=== PATIENT | female | born 1975 | race Caucasian/White ===

== ENCOUNTER 2016-12-22 23:54 | Inpatient (IN) | payer MEDICAID, MEDICARE ==
[~2016-12-22] VITALS: Ht 165.1 cm; Wt 61.0 kg
[~2016-12-22 23:54] MED LIST: BENZ1TAB10 PO; CARB200T PO; FLUP10 PO; PALI156D IM; RISP3TAB44 PO
[2016-12-23] MEDS ORDERED: HALOPERIDOL 5 MG TABLET PO ONE (01:00)
[2016-12-23] MEDS ORDERED: LORazepam 2 MG TABLET PO ONE (01:00)
[2016-12-23] MEDS ORDERED: DiphenhydrAMINE HCL 25 MG CAPSULE PO ONE (01:00)
[2016-12-23 01:11] LABS: BASOPHILS # (AUTO) 0.17 K/uL (0.00-0.20); EOSINOPHILS # (AUTO) 0.14 K/uL (0.00-0.70); HEMATOCRIT 38.6 % (36-46); HEMOGLOBIN 12.8 g/dL (12.0-16.0); LYMPHOCYTES # (AUTO) 2.9 K/uL (1.0-4.8); LYMPHOCYTES % (AUTO) 33.7 % (22.0-44.0); MEAN CORPUSCULAR HEMOGLOBIN 29.8 pg (26.0-34.0); MEAN CORPUSCULAR HGB CONC 33.3 G/dL (31.0-37.0); MEAN CORPUSCULAR VOLUME 89 fL (80-100); MONOCYTES # (AUTO) 0.7 K/uL (0.1-1.0); MONOCYTES % (AUTO) 8.5 % (2.0-9.0); NEUTROPHILS # (AUTO) 4.7 K/uL (1.8-7.7); NEUTROPHILS % (AUTO) 54.3 % (40.0-70.0); PLATELET COUNT (AUTO) 253 K/uL (150-450); RED BLOOD CELL COUNT(AUTO) 4.32 MIL/uL (4.00-5.20); WHITE BLOOD COUNT (AUTO) 8.7 K/uL (4.5-11.0)
[2016-12-23 01:22] LABS: ANION GAP 3 mmol/L (8-16); CALCIUM, TOTAL 8.9 mg/dL (8.8-10.5); CARBON DIOXIDE 33 mmol/L (22-29); CHLORIDE 104 mmol/L (98-107); CREATININE 0.88 mg/dL (0.60-1.30); GLOMERULAR FILTR. RATE CALC > 60 mL/min (>60); POTASSIUM 3.4 mmol/L (3.5-5.1); SODIUM SERUM 140 mmol/L (136-145); UREA NITROGEN, BLOOD 14 mg/dL (7-18)
[2016-12-23 01:28] LABS: ALANINE AMINOTRANSFERASE 23 U/L (12-78); ALBUMIN 3.1 g/dL (3.4-5.0); ASPARTATE AMINOTRANSFERASE 18 U/L (15-37); BILIRUBIN,TOTAL 0.1 mg/dL (0.1-1.0); TOTAL PROTEIN, SERUM 7.1 g/dL (6.4-8.2)
[2016-12-23 01:30] VITALS: BP 132/71
[2016-12-23] MEDS ORDERED: ZOLPIDEM TARTRATE 10 MG TABLET PO PRN (01:30)
[2016-12-23] MEDS ORDERED: HALOPERIDOL 5 MG TABLET PO PRN (01:30)
[2016-12-23] MEDS ORDERED: POTASSIUM CHLORIDE 10% 40 MEQ/30 ML LIQUID UDCUP PO ONE (02:00)
[2016-12-23 07:02] LABS: APPEARANCE,URINE TURBID (CLEAR); GLUCOSE, URINE (UA) NEGATIVE (NEGATIVE); KETONES,URINE NEGATIVE (NEGATIVE); LEUKOCYTE ESTERASE ,URINE NEGATIVE (NEGATIVE); OCCULT BLOOD,URINE NEGATIVE (NEGATIVE); PH,URINE 5.5 (5.0-8.0); PROTEIN,URINE NEGATIVE (NEGATIVE)
[2016-12-23 07:04] LABS: ADD UA MICROSCOPIC NO
[2016-12-23] MEDS: CarBAMazepine 200 MG TABLET PO SCH ×2 (09:00→17:00)
[2016-12-23] MEDS ORDERED: BENZTROPINE MESYLATE 1 MG TABLET PO SCH (09:00)
[2016-12-23] MEDS: RisperiDONE 1 MG TABLET PO SCH ×2 (09:00→17:00)
[2016-12-23] MEDS ORDERED: PALIPERIDONE PALMITATE 156 MG/ML SYRINGE IM SCH (09:00)
[2016-12-23] MEDS ORDERED: IBUPROFEN 400 MG TABLET PO PRN (13:30)
[2016-12-23] MEDS ORDERED: ACETAMINOPHEN 325 MG TABLET PO PRN (13:30)
[2016-12-23] MEDS: BENZTROPINE MESYLATE 1 MG TABLET PO SCH (17:00)
[2016-12-23] MEDS ORDERED: FluPHENAZine HCL 10 MG TABLET PO SCH (21:00)
[2016-12-23] MEDS ORDERED: ALBUTEROL SULFATE HFA 90 MCG/PUFF 8 GM INHALER IH PRN (22:15)
[2016-12-24] MEDS: LevETIRAcetam 250 MG TABLET PO SCH ×2 (09:00→17:00)
[2016-12-24] MEDS: CarBAMazepine 200 MG TABLET PO SCH ×2 (09:00→17:00)
[2016-12-24] MEDS: RisperiDONE 1 MG TABLET PO SCH ×2 (09:00→17:00)
[2016-12-24] MEDS: BENZTROPINE MESYLATE 1 MG TABLET PO SCH ×2 (09:00→17:00)
[2016-12-25] MEDS: LevETIRAcetam 250 MG TABLET PO SCH ×2 (09:00→17:11)
[2016-12-25] MEDS: CarBAMazepine 200 MG TABLET PO SCH ×2 (09:00→17:11)
[2016-12-25] MEDS: BENZTROPINE MESYLATE 1 MG TABLET PO SCH ×2 (09:00→17:11)
[2016-12-25] MEDS: RisperiDONE 1 MG TABLET PO SCH ×2 (09:00→17:00)
[2016-12-25 16:30] VITALS: BP 118/56
[2016-12-25] MEDS ORDERED: BENZOCAINE/MENTHOL LOZENGE [8 LOZENGES/PACKET] MM PRN (19:45)
[2016-12-25] MEDS ORDERED: PETROLATUM,WHITE 71 GM JELLY TP PRN (19:45)
[2016-12-25] MEDS ORDERED: BACITRACIN 28.4 GM OINTMENT TP PRN (19:45)
[2016-12-25] MEDS ORDERED: LOPERAMIDE HCL 2 MG CAPSULE PO PRN (19:45)
[2016-12-25] MEDS ORDERED: MAGNESIUM HYDROXIDE SUSPENSION 30 ML UDCUP PO PRN (19:45)
[2016-12-25] MEDS ORDERED: ONDANSETRON HCL 4 MG TABLET PO PRN (19:45)
[2016-12-25] MEDS ORDERED: MAG HYDROX/AL HYDROX/SIMETH ES 30 ML SUSPENSION UDCUP PO PRN (19:45)
[2016-12-25] MEDS ORDERED: IBUPROFEN 600 MG TABLET PO PRN (19:45)
[2016-12-25] MEDS ORDERED: CloNIDine HCL 0.1 MG TABLET PO PRN (19:45)
[2016-12-26] MEDS: RisperiDONE 1 MG TABLET PO SCH ×2 (09:00→18:15)
[2016-12-26] MEDS: BENZTROPINE MESYLATE 1 MG TABLET PO SCH ×2 (09:00→18:15)
[2016-12-26] MEDS: LevETIRAcetam 250 MG TABLET PO SCH ×2 (09:00→17:00)
[2016-12-26] MEDS: OMEPRAZOLE 20 MG CAPSULE PO SCH (09:00)
[2016-12-26] MEDS: CarBAMazepine 200 MG TABLET PO SCH ×2 (09:00→17:00)
[2016-12-26] MEDS: DOCUSATE SODIUM 100 MG CAPSULE PO SCH (09:00)
[2016-12-26] MEDS ORDERED: DiphenhydrAMINE HCL 50 MG/ML VIAL IM ONE (09:30)
[2016-12-26] MEDS ORDERED: HALOPERIDOL LACTATE 5 MG/ML VIAL IM ONE (09:30)
[2016-12-26] MEDS ORDERED: LORazepam 2 MG/ML VIAL IM ONE (09:30)
[2016-12-27] MEDS: BENZTROPINE MESYLATE 1 MG TABLET PO SCH ×2 (09:00→17:00)
[2016-12-27] MEDS: LevETIRAcetam 250 MG TABLET PO SCH ×2 (09:00→17:00)
[2016-12-27] MEDS: RisperiDONE 1 MG TABLET PO SCH ×2 (09:00→18:15)
[2016-12-27] MEDS: CarBAMazepine 200 MG TABLET PO SCH ×2 (09:00→17:00)
[2016-12-27] MEDS: OMEPRAZOLE 20 MG CAPSULE PO SCH (09:16)
[2016-12-27] MEDS: DOCUSATE SODIUM 100 MG CAPSULE PO SCH (09:17)
[2016-12-27] MEDS ORDERED: DiphenhydrAMINE HCL 50 MG/ML VIAL IM ONE (10:45)
[2016-12-27] MEDS ORDERED: LORazepam 2 MG/ML VIAL IM ONE (10:45)
[2016-12-27] MEDS ORDERED: HALOPERIDOL LACTATE 5 MG/ML VIAL IM ONE (10:45)
[2016-12-27] MEDS ORDERED: HALOPERIDOL LACTATE 5 MG/ML VIAL ONE (10:49)
[2016-12-27] MEDS ORDERED: DiphenhydrAMINE HCL 50 MG/ML VIAL ONE (10:49)
[2016-12-27] MEDS ORDERED: LORazepam 2 MG/ML VIAL ONE (10:49)
[2016-12-28] MEDS: BENZTROPINE MESYLATE 1 MG TABLET PO SCH ×3 (08:29→17:00)
[2016-12-28] MEDS: LevETIRAcetam 250 MG TABLET PO SCH ×3 (08:29→17:00)
[2016-12-28] MEDS: CarBAMazepine 200 MG TABLET PO SCH ×2 (08:29→17:00)
[2016-12-28] MEDS: OMEPRAZOLE 20 MG CAPSULE PO SCH (08:32)
[2016-12-28] MEDS: DOCUSATE SODIUM 100 MG CAPSULE PO SCH (08:32)
[2016-12-28] MEDS: RisperiDONE 1 MG TABLET PO SCH ×2 (08:32→17:00)
[2016-12-28] MEDS: LORazepam 2 MG TABLET PO PRN (13:13)
[2016-12-28] MEDS ORDERED: HALOPERIDOL LACTATE 5 MG/ML VIAL IM ONE (13:15)
[2016-12-28] MEDS ORDERED: DiphenhydrAMINE HCL 50 MG/ML VIAL IM ONE (13:15)
[2016-12-28] MEDS ORDERED: LORazepam 2 MG/ML VIAL IM ONE (13:15)
[2016-12-29] MEDS: LevETIRAcetam 250 MG TABLET PO SCH ×2 (09:00→16:12)
[2016-12-29] MEDS: RisperiDONE 1 MG TABLET PO SCH ×2 (09:12→16:12)
[2016-12-29] MEDS: BENZTROPINE MESYLATE 1 MG TABLET PO SCH ×2 (09:12→16:12)
[2016-12-29] MEDS: CarBAMazepine 200 MG TABLET PO SCH ×2 (09:12→16:12)
[2016-12-29] MEDS: DOCUSATE SODIUM 100 MG CAPSULE PO SCH (09:12)
[2016-12-29] MEDS: OMEPRAZOLE 20 MG CAPSULE PO SCH (09:12)
[2016-12-29] MEDS: LORazepam 2 MG TABLET PO PRN ×2 (10:29→16:12)
[2016-12-29 16:37] VITALS: BP 118/71
[2016-12-30] MEDS: DOCUSATE SODIUM 100 MG CAPSULE PO SCH (08:12)
[2016-12-30] MEDS: OMEPRAZOLE 20 MG CAPSULE PO SCH (08:12)
[2016-12-30] MEDS: RisperiDONE 1 MG TABLET PO SCH ×2 (08:12→17:00)
[2016-12-30] MEDS: BENZTROPINE MESYLATE 1 MG TABLET PO SCH ×2 (08:12→16:59)
[2016-12-30] MEDS: LevETIRAcetam 250 MG TABLET PO SCH ×2 (08:21→17:00)
[2016-12-30] MEDS: CarBAMazepine 200 MG TABLET PO SCH ×2 (08:21→17:00)
[2016-12-30 09:55] VITALS: BP 96/68
[2016-12-31] MEDS: RisperiDONE 1 MG TABLET PO SCH ×2 (08:28→16:48)
[2016-12-31] MEDS: DOCUSATE SODIUM 100 MG CAPSULE PO SCH (08:28)
[2016-12-31] MEDS: BENZTROPINE MESYLATE 1 MG TABLET PO SCH ×2 (08:28→16:47)
[2016-12-31] MEDS: CarBAMazepine 200 MG TABLET PO SCH ×2 (08:28→16:47)
[2016-12-31] MEDS: OMEPRAZOLE 20 MG CAPSULE PO SCH (08:29)
[2016-12-31] MEDS: LevETIRAcetam 250 MG TABLET PO SCH ×3 (08:34→17:00)
[2016-12-31 16:30] VITALS: BP 110/68
[2017-01-01] MEDS: BENZTROPINE MESYLATE 1 MG TABLET PO SCH ×2 (08:50→16:25)
[2017-01-01] MEDS: RisperiDONE 1 MG TABLET PO SCH ×2 (08:50→16:25)
[2017-01-01] MEDS: DOCUSATE SODIUM 100 MG CAPSULE PO SCH (08:50)
[2017-01-01] MEDS: OMEPRAZOLE 20 MG CAPSULE PO SCH (08:50)
[2017-01-01] MEDS: LevETIRAcetam 250 MG TABLET PO SCH ×2 (08:53→16:26)
[2017-01-01] MEDS: CarBAMazepine 200 MG TABLET PO SCH ×2 (08:53→16:25)
[2017-01-01 16:30] VITALS: BP 111/63
[2017-01-02 08:20] VITALS: BP 125/105
[2017-01-02] MEDS: RisperiDONE 1 MG TABLET PO SCH ×2 (09:00→16:50)
[2017-01-02] MEDS: DOCUSATE SODIUM 100 MG CAPSULE PO SCH (09:00)
[2017-01-02] MEDS: BENZTROPINE MESYLATE 1 MG TABLET PO SCH ×2 (09:00→16:51)
[2017-01-02] MEDS: CarBAMazepine 200 MG TABLET PO SCH ×2 (09:00→16:51)
[2017-01-02] MEDS: LevETIRAcetam 250 MG TABLET PO SCH ×2 (09:01→16:51)
[2017-01-02] MEDS: OMEPRAZOLE 20 MG CAPSULE PO SCH (09:01)
[2017-01-02] MEDS: LORazepam 2 MG TABLET PO PRN (16:50)
[2017-01-02 19:38] VITALS: BP 110/64
[2017-01-03] MEDS: LevETIRAcetam 250 MG TABLET PO SCH ×2 (09:00→16:38)
[2017-01-03] MEDS: DOCUSATE SODIUM 100 MG CAPSULE PO SCH (09:00)
[2017-01-03] MEDS: CarBAMazepine 200 MG TABLET PO SCH ×2 (09:00→16:37)
[2017-01-03] MEDS: RisperiDONE 1 MG TABLET PO SCH ×2 (09:00→16:38)
[2017-01-03] MEDS: OMEPRAZOLE 20 MG CAPSULE PO SCH (09:00)
[2017-01-03] MEDS: BENZTROPINE MESYLATE 1 MG TABLET PO SCH ×2 (09:00→16:38)
[2017-01-03] MEDS: LORazepam 2 MG TABLET PO PRN ×3 (14:38→18:41)
[2017-01-03 21:36] VITALS: BP 148/79
[2017-01-04] MEDS: CarBAMazepine 200 MG TABLET PO SCH ×2 (08:01→16:23)
[2017-01-04] MEDS: OMEPRAZOLE 20 MG CAPSULE PO SCH (08:01)
[2017-01-04] MEDS: LevETIRAcetam 250 MG TABLET PO SCH ×2 (08:01→16:23)
[2017-01-04] MEDS: DOCUSATE SODIUM 100 MG CAPSULE PO SCH (08:01)
[2017-01-04] MEDS: RisperiDONE 1 MG TABLET PO SCH ×2 (08:01→16:23)
[2017-01-04] MEDS: BENZTROPINE MESYLATE 1 MG TABLET PO SCH ×2 (08:01→16:23)
[2017-01-04 08:18] VITALS: BP 106/71
[2017-01-04] MEDS: LORazepam 2 MG TABLET PO PRN ×2 (11:04→15:35)
[2017-01-04 16:22] VITALS: BP 126/77
[2017-01-05] MEDS: RisperiDONE 1 MG TABLET PO SCH ×2 (07:25→16:38)
[2017-01-05] MEDS: LevETIRAcetam 250 MG TABLET PO SCH ×2 (07:25→16:39)
[2017-01-05] MEDS: OMEPRAZOLE 20 MG CAPSULE PO SCH (07:25)
[2017-01-05] MEDS: CarBAMazepine 200 MG TABLET PO SCH ×2 (07:25→16:39)
[2017-01-05] MEDS: BENZTROPINE MESYLATE 1 MG TABLET PO SCH ×2 (07:25→16:39)
[2017-01-05] MEDS: DOCUSATE SODIUM 100 MG CAPSULE PO SCH (07:25)
[2017-01-05] MEDS: LORazepam 2 MG TABLET PO PRN ×2 (07:29→12:00)
[2017-01-05 08:03] VITALS: BP 97/62
[2017-01-05 16:08] VITALS: BP 104/70
[2017-01-06 06:51] VITALS: BP 107/68
[2017-01-06] MEDS ORDERED: CARB200T6 PO (07:51)
[2017-01-06] MEDS ORDERED: OMEP20 PO (07:51)
[2017-01-06] MEDS ORDERED: BENZ1TAB10 PO (07:51)
[2017-01-06] MEDS ORDERED: LEVE250T55 PO (07:51)
[2017-01-06] MEDS ORDERED: RISP3 PO (07:51)
[2017-01-06] MEDS ORDERED: DSS100 PO (07:51)
[2017-01-06] MEDS: RisperiDONE 1 MG TABLET PO SCH (08:12)
[2017-01-06] MEDS: LevETIRAcetam 250 MG TABLET PO SCH (08:12)
[2017-01-06] MEDS: DOCUSATE SODIUM 100 MG CAPSULE PO SCH (08:12)
[2017-01-06] MEDS: OMEPRAZOLE 20 MG CAPSULE PO SCH (08:12)
[2017-01-06] MEDS: CarBAMazepine 200 MG TABLET PO SCH (08:12)
[2017-01-06] MEDS: BENZTROPINE MESYLATE 1 MG TABLET PO SCH (08:12)
[2017-01-06 08:30] VITALS: BP 104/62
== END 2017-01-06 12:06 | disposition home or self-care (01) | DRG 885 ==
LOC: EMS 23:56 → 3EX 12-23 02:00
DX: F20.0 Paranoid schizophrenia (principal); R45.851 Suicidal ideations; M19.90 Unspecified osteoarthritis, unspecified site; J45.909 Unspecified asthma, uncomplicated; F31.9 Bipolar disorder, unspecified; K21.9 Gastro-esophageal reflux disease without esophagitis; I10 Essential (primary) hypertension; G40.909 Epilepsy, unspecified, not intractable, without status epilepticus; E87.6 Hypokalemia; K59.09 Other constipation; J44.9 Chronic obstructive pulmonary disease, unspecified; F15.90 Other stimulant use, unspecified, uncomplicated; F12.90 Cannabis use, unspecified, uncomplicated; F17.210 Nicotine dependence, cigarettes, uncomplicated; F11.90 Opioid use, unspecified, uncomplicated; Z59.0 Homelessness; Z91.14 Patient's other noncompliance with medication regimen; Z91.018 Allergy to other foods; Z90.49 Acquired absence of other specified parts of digestive tract; Z98.51 Tubal ligation status; Z90.5 Acquired absence of kidney; Z98.890 Other specified postprocedural states; Z71.51 Drug abuse counseling and surveillance of drug abuser; Z71.6 Tobacco abuse counseling; Z91.5 Personal history of self-harm
CPT/HCPCS: 99285; G0480; J1200; J1630; J2060

== ENCOUNTER 2017-01-14 23:25 | Inpatient (IN) | payer MEDICARE ==
[~2017-01-14] VITALS: Ht 162.6 cm; Wt 63.4 kg
[~2017-01-14 23:25] MED LIST changes: -CARB200T PO; +CARB200T6 PO; +DSS100 PO; -FLUP10 PO; +LEVE250T55 PO; +OMEP20 PO; -PALI156D IM; +RISP3 PO; -RISP3TAB44 PO
[2017-01-15] LABS: BASOPHILS # (AUTO) 0.07 K/uL (0.00-0.20); BASOPHILS % (AUTO) 0.8 % (0.0-2.0); EOSINOPHILS # (AUTO) 0.21 K/uL (0.00-0.70); EOSINOPHILS % (AUTO) 2.19 % (1.0-6.0); HEMATOCRIT 35.5 % (36-46); HEMOGLOBIN 11.8 g/dL (12.0-16.0); LYMPHOCYTES # (AUTO) 2.9 K/uL (1.0-4.8); LYMPHOCYTES % (AUTO) 29.8 % (22.0-44.0); MEAN CORPUSCULAR HEMOGLOBIN 29.6 pg (26.0-34.0); MEAN CORPUSCULAR HGB CONC 33.2 G/dL (31.0-37.0); MEAN CORPUSCULAR VOLUME 89 fL (80-100); MONOCYTES # (AUTO) 0.6 K/uL (0.1-1.0); MONOCYTES % (AUTO) 5.7 % (2.0-9.0); NEUTROPHILS % (AUTO) 61.6 % (40.0-70.0); PLATELET COUNT (AUTO) 240 K/uL (150-450); RED BLOOD CELL COUNT(AUTO) 3.98 MIL/uL (4.00-5.20); RED CELL DISTRIBUTION WIDTH 14.8 % (11.5-14.5); WHITE BLOOD COUNT (AUTO) 9.8 K/uL (4.5-11.0)
[2017-01-15 00:09] LABS: ANION GAP 9 mmol/L (8-16); CALCIUM, TOTAL 8.7 mg/dL (8.8-10.5); CARBON DIOXIDE 27 mmol/L (22-29); CHLORIDE 106 mmol/L (98-107); CREATININE 0.76 mg/dL (0.60-1.30); GLOMERULAR FILTR. RATE CALC > 60 mL/min (>60); POTASSIUM 3.5 mmol/L (3.5-5.1); SODIUM SERUM 142 mmol/L (136-145); UREA NITROGEN, BLOOD 13 mg/dL (7-18)
[2017-01-15 00:15] LABS: ALANINE AMINOTRANSFERASE 31 U/L (12-78); ALBUMIN 3.2 g/dL (3.4-5.0); ASPARTATE AMINOTRANSFERASE 15 U/L (15-37); BILIRUBIN,TOTAL 0.2 mg/dL (0.1-1.0)
[2017-01-15] MEDS ORDERED: ZOLPIDEM TARTRATE 10 MG TABLET PO PRN (01:30)
[2017-01-15 01:31] LABS: APPEARANCE,URINE CLOUDY (CLEAR); GLUCOSE, URINE (UA) NEGATIVE (NEGATIVE); KETONES,URINE TRACE mg/dL (NEGATIVE); LEUKOCYTE ESTERASE ,URINE NEGATIVE (NEGATIVE); OCCULT BLOOD,URINE TRACE (NEGATIVE); PROTEIN,URINE NEGATIVE (NEGATIVE)
[2017-01-15 01:32] LABS: ADD UA MICROSCOPIC YES
[2017-01-15 01:54] LABS: SQUAMOUS EPITHELIAL CELL,UR Moderate /LPF (None Seen)
[2017-01-15 03:57] VITALS: BP 104/59
[2017-01-15 06:43] LABS: CHOL/HDL RATIO 1.6 (3.9-5.7)
[2017-01-15 08:54] VITALS: BP 102/65
[2017-01-15] MEDS: BENZTROPINE MESYLATE 1 MG TABLET PO SCH ×2 (09:00→18:59)
[2017-01-15] MEDS: RisperiDONE 1 MG TABLET PO SCH ×2 (09:00→18:59)
[2017-01-15] MEDS ORDERED: ACETAMINOPHEN 325 MG TABLET PO PRN (20:00)
[2017-01-15] MEDS ORDERED: ALBUTEROL SULFATE HFA 90 MCG/PUFF 8 GM INHALER IH PRN (20:00)
[2017-01-15] MEDS ORDERED: IBUPROFEN 400 MG TABLET PO PRN (20:00)
[2017-01-16] MEDS: LevETIRAcetam 250 MG TABLET PO SCH ×2 (09:26→17:29)
[2017-01-16] MEDS: BENZTROPINE MESYLATE 1 MG TABLET PO SCH ×2 (09:26→17:29)
[2017-01-16] MEDS: OMEPRAZOLE 20 MG CAPSULE PO SCH (09:26)
[2017-01-16] MEDS: RisperiDONE 1 MG TABLET PO SCH ×2 (09:26→17:29)
[2017-01-16] MEDS: HALOPERIDOL 5 MG TABLET PO PRN (09:27)
[2017-01-16] MEDS: DOCUSATE SODIUM 100 MG CAPSULE PO SCH (09:27)
[2017-01-17 08:45] VITALS: BP 132/88
[2017-01-17] MEDS: RisperiDONE 1 MG TABLET PO SCH ×2 (09:09→16:25)
[2017-01-17] MEDS: DOCUSATE SODIUM 100 MG CAPSULE PO SCH (09:10)
[2017-01-17] MEDS: BENZTROPINE MESYLATE 1 MG TABLET PO SCH ×2 (09:10→16:25)
[2017-01-17] MEDS: OMEPRAZOLE 20 MG CAPSULE PO SCH (09:10)
[2017-01-17] MEDS: LevETIRAcetam 250 MG TABLET PO SCH ×2 (09:10→16:25)
[2017-01-17] MEDS: HALOPERIDOL 5 MG TABLET PO PRN (09:23)
[2017-01-17] MEDS: LORazepam 2 MG TABLET PO PRN (16:25)
[2017-01-18] MEDS: BENZTROPINE MESYLATE 1 MG TABLET PO SCH ×2 (10:23→16:10)
[2017-01-18] MEDS: DOCUSATE SODIUM 100 MG CAPSULE PO SCH (10:23)
[2017-01-18] MEDS: RisperiDONE 1 MG TABLET PO SCH ×2 (10:23→16:10)
[2017-01-18] MEDS: OMEPRAZOLE 20 MG CAPSULE PO SCH (10:23)
[2017-01-18] MEDS: LevETIRAcetam 250 MG TABLET PO SCH ×2 (10:23→16:10)
[2017-01-18] MEDS: LORazepam 2 MG TABLET PO PRN (16:10)
[2017-01-18] MEDS: HALOPERIDOL 5 MG TABLET PO PRN (16:11)
[2017-01-19] MEDS: RisperiDONE 1 MG TABLET PO SCH ×2 (08:00→18:57)
[2017-01-19] MEDS: BENZTROPINE MESYLATE 1 MG TABLET PO SCH ×2 (08:00→18:57)
[2017-01-19] MEDS: DOCUSATE SODIUM 100 MG CAPSULE PO SCH (08:00)
[2017-01-19] MEDS: OMEPRAZOLE 20 MG CAPSULE PO SCH (08:00)
[2017-01-19 08:49] VITALS: BP 90/52
[2017-01-19] MEDS: LevETIRAcetam 250 MG TABLET PO SCH ×2 (09:59→17:00)
[2017-01-19] MEDS: LORazepam 2 MG TABLET PO PRN (12:20)
[2017-01-19] MEDS: HALOPERIDOL 5 MG TABLET PO PRN (12:20)
[2017-01-20] MEDS: DOCUSATE SODIUM 100 MG CAPSULE PO SCH (07:55)
[2017-01-20] MEDS: OMEPRAZOLE 20 MG CAPSULE PO SCH (07:55)
[2017-01-20] MEDS: RisperiDONE 1 MG TABLET PO SCH ×2 (07:55→16:21)
[2017-01-20] MEDS: LevETIRAcetam 250 MG TABLET PO SCH ×2 (07:56→16:21)
[2017-01-20] MEDS: BENZTROPINE MESYLATE 1 MG TABLET PO SCH ×2 (07:57→16:21)
[2017-01-20 09:49] VITALS: BP 143/55
[2017-01-20 17:10] VITALS: BP 102/65
[2017-01-21 08:30] VITALS: BP 129/78
[2017-01-21] MEDS: OMEPRAZOLE 20 MG CAPSULE PO SCH (09:39)
[2017-01-21] MEDS: HALOPERIDOL 5 MG TABLET PO PRN (09:39)
[2017-01-21] MEDS: RisperiDONE 1 MG TABLET PO SCH ×2 (09:39→16:49)
[2017-01-21] MEDS: BENZTROPINE MESYLATE 1 MG TABLET PO SCH ×2 (09:40→16:49)
[2017-01-21] MEDS: LevETIRAcetam 250 MG TABLET PO SCH ×2 (09:40→16:49)
[2017-01-21] MEDS: DOCUSATE SODIUM 100 MG CAPSULE PO SCH (09:40)
[2017-01-21 17:03] VITALS: BP 124/66
[2017-01-22] MEDS: RisperiDONE 1 MG TABLET PO SCH (09:36)
[2017-01-22] MEDS: LevETIRAcetam 250 MG TABLET PO SCH (09:36)
[2017-01-22] MEDS: OMEPRAZOLE 20 MG CAPSULE PO SCH (09:36)
[2017-01-22] MEDS: HALOPERIDOL 5 MG TABLET PO PRN (09:36)
[2017-01-22] MEDS: BENZTROPINE MESYLATE 1 MG TABLET PO SCH (09:36)
[2017-01-22] MEDS: DOCUSATE SODIUM 100 MG CAPSULE PO SCH (09:37)
[2017-03-05] MEDS ORDERED: RISP2 PO (14:48)
== END 2017-01-22 13:30 | disposition home or self-care (01) | DRG 885 ==
LOC: EMS 23:27 → 3EX 01-15 01:30
DX: F20.0 Paranoid schizophrenia (principal); R45.851 Suicidal ideations; G40.909 Epilepsy, unspecified, not intractable, without status epilepticus; F15.90 Other stimulant use, unspecified, uncomplicated; F12.90 Cannabis use, unspecified, uncomplicated; F79 Unspecified intellectual disabilities; J45.909 Unspecified asthma, uncomplicated; K21.9 Gastro-esophageal reflux disease without esophagitis; I10 Essential (primary) hypertension; F17.210 Nicotine dependence, cigarettes, uncomplicated; J44.9 Chronic obstructive pulmonary disease, unspecified; K59.09 Other constipation; F19.10 Other psychoactive substance abuse, uncomplicated; M19.90 Unspecified osteoarthritis, unspecified site; F11.90 Opioid use, unspecified, uncomplicated; Y90.0 Blood alcohol level of less than 20 mg/100 ml; F31.9 Bipolar disorder, unspecified; Z59.0 Homelessness; Z90.49 Acquired absence of other specified parts of digestive tract; Z91.02 Food additives allergy status; Z98.51 Tubal ligation status; Z90.5 Acquired absence of kidney; Z71.6 Tobacco abuse counseling; Z71.51 Drug abuse counseling and surveillance of drug abuser; Z71.41 Alcohol abuse counseling and surveillance of alcoholic; Z91.19 Patient's noncompliance with other medical treatment and regimen; Z79.899 Other long term (current) drug therapy; Z72.89 Other problems related to lifestyle
CPT/HCPCS: 87081; 87086; 99285; G0480

== ENCOUNTER 2017-01-29 04:00 | Emergency (ER) | payer MEDICARE ==
[~2017-01-29] VITALS: Ht 165.1 cm; Wt 84.1 kg
[~2017-01-29 04:00] MED LIST changes: -CARB200T6 PO; -DSS100 PO
[2017-01-29 06:17] VITALS: BP 122/78
[2017-01-29 06:41] LABS: BASOPHILS # (AUTO) 0.05 K/uL (0.00-0.20); BASOPHILS % (AUTO) 0.6 % (0.0-2.0); EOSINOPHILS # (AUTO) 0.21 K/uL (0.00-0.70); EOSINOPHILS % (AUTO) 2.73 % (1.0-6.0); HEMATOCRIT 37.5 % (36-46); HEMOGLOBIN 12.2 g/dL (12.0-16.0); LYMPHOCYTES # (AUTO) 2.5 K/uL (1.0-4.8); LYMPHOCYTES % (AUTO) 32.9 % (22.0-44.0); MEAN CORPUSCULAR HGB CONC 32.5 G/dL (31.0-37.0); MEAN CORPUSCULAR VOLUME 89 fL (80-100); MONOCYTES # (AUTO) 0.7 K/uL (0.1-1.0); MONOCYTES % (AUTO) 9.1 % (2.0-9.0); NEUTROPHILS # (AUTO) 4.2 K/uL (1.8-7.7); NEUTROPHILS % (AUTO) 54.7 % (40.0-70.0); PLATELET COUNT (AUTO) 198 K/uL (150-450); RED BLOOD CELL COUNT(AUTO) 4.19 MIL/uL (4.00-5.20); WHITE BLOOD COUNT (AUTO) 7.6 K/uL (4.5-11.0)
[2017-01-29 06:49] LABS: ANION GAP 10 mmol/L (8-16); CALCIUM, TOTAL 8.4 mg/dL (8.8-10.5); CARBON DIOXIDE 27 mmol/L (22-29); CHLORIDE 103 mmol/L (98-107); CREATININE 0.75 mg/dL (0.60-1.30); GLOMERULAR FILTR. RATE CALC > 60 mL/min (>60); POTASSIUM 3.8 mmol/L (3.5-5.1); SODIUM SERUM 140 mmol/L (136-145); UREA NITROGEN, BLOOD 15 mg/dL (7-18)
[2017-01-29 06:55] LABS: ALANINE AMINOTRANSFERASE 39 U/L (12-78); ALBUMIN 3.2 g/dL (3.4-5.0); ASPARTATE AMINOTRANSFERASE 14 U/L (15-37); BILIRUBIN,TOTAL 0.2 mg/dL (0.1-1.0); TOTAL PROTEIN, SERUM 6.9 g/dL (6.4-8.2)
[2017-01-29] MEDS ORDERED: RisperiDONE 1 MG TABLET PO ONE (08:30)
[2017-03-05] MEDS ORDERED: RISP2 PO (14:48)
== END 2017-01-29 09:46 | disposition home or self-care (01) ==
LOC: EMS 04:05
DX: F25.9 Schizoaffective disorder, unspecified (principal); F19.10 Other psychoactive substance abuse, uncomplicated; F17.210 Nicotine dependence, cigarettes, uncomplicated; F20.9 Schizophrenia, unspecified; I10 Essential (primary) hypertension; K21.9 Gastro-esophageal reflux disease without esophagitis; J45.909 Unspecified asthma, uncomplicated; F31.9 Bipolar disorder, unspecified; F11.90 Opioid use, unspecified, uncomplicated; F12.90 Cannabis use, unspecified, uncomplicated; Z91.018 Allergy to other foods
CPT/HCPCS: 36415; 80053; 80307; 85025; 99284; G0480

== ENCOUNTER 2017-03-13 19:57 | Emergency (ER) | payer MEDICARE ==
[~2017-03-13] VITALS: Ht 165.1 cm; Wt 70.5 kg
[~2017-03-13 19:57] MED LIST changes: +RISP2 PO; -RISP3 PO
[2017-03-13 20:23] VITALS: BP 119/67
== END 2017-03-13 21:33 | disposition home or self-care (01) ==
LOC: EMS 20:01
DX: N64.4 Mastodynia (principal); J45.909 Unspecified asthma, uncomplicated; K21.9 Gastro-esophageal reflux disease without esophagitis; I10 Essential (primary) hypertension; F17.210 Nicotine dependence, cigarettes, uncomplicated; F11.90 Opioid use, unspecified, uncomplicated; F12.90 Cannabis use, unspecified, uncomplicated; F19.90 Other psychoactive substance use, unspecified, uncomplicated; Z91.018 Allergy to other foods
CPT/HCPCS: 99281

== ENCOUNTER 2017-05-13 23:02 | Emergency (ER) | payer MEDICARE ==
[~2017-05-13] VITALS: Ht 165.1 cm; Wt 61.4 kg
[2017-05-13 23:44] LABS: BASOPHILS % (AUTO) 0.8 % (0.0-2.0); EOSINOPHILS % (AUTO) 2.2 % (1.0-6.0); HEMATOCRIT 35.3 % (36-46); HEMOGLOBIN 11.9 g/dL (12.0-16.0); LYMPHOCYTES # (AUTO) 3.3 K/uL (1.0-4.8); LYMPHOCYTES % (AUTO) 34.2 % (22.0-44.0); MEAN CORPUSCULAR HEMOGLOBIN 30.4 pg (26.0-34.0); MEAN CORPUSCULAR HGB CONC 33.6 G/dL (31.0-37.0); MEAN CORPUSCULAR VOLUME 91 fL (80-100); MONOCYTES # (AUTO) 0.5 K/uL (0.1-1.0); MONOCYTES % (AUTO) 4.9 % (2.0-9.0); NEUTROPHILS # (AUTO) 5.6 K/uL (1.8-7.7); NEUTROPHILS % (AUTO) 57.9 % (40.0-70.0); PLATELET COUNT (AUTO) 239 K/uL (150-450); RED CELL DISTRIBUTION WIDTH 15.7 % (11.5-14.5); WHITE BLOOD COUNT (AUTO) 9.7 K/uL (4.5-11.0)
[2017-05-14 00:01] LABS: ANION GAP 8 mmol/L (8-16); CALCIUM, TOTAL 8.7 mg/dL (8.8-10.5); CARBON DIOXIDE 25 mmol/L (22-29); CHLORIDE 109 mmol/L (98-107); CREATININE 0.88 mg/dL (0.60-1.30); GLOMERULAR FILTR. RATE CALC > 60 mL/min (>60); POTASSIUM 3.8 mmol/L (3.5-5.1); SODIUM SERUM 142 mmol/L (136-145); UREA NITROGEN, BLOOD 26 mg/dL (7-18)
[2017-05-14 00:08] LABS: ALANINE AMINOTRANSFERASE 21 U/L (12-78); ALBUMIN 3.2 g/dL (3.4-5.0); ASPARTATE AMINOTRANSFERASE 12 U/L (15-37); BILIRUBIN,TOTAL 0.2 mg/dL (0.1-1.0); TOTAL PROTEIN, SERUM 6.6 g/dL (6.4-8.2)
[2017-05-14 01:40] VITALS: BP 129/71
== END 2017-05-14 01:43 | disposition home or self-care (01) ==
LOC: EMS 23:03
DX: F20.0 Paranoid schizophrenia (principal); F32.9 Major depressive disorder, single episode, unspecified; I10 Essential (primary) hypertension; J45.909 Unspecified asthma, uncomplicated; K21.9 Gastro-esophageal reflux disease without esophagitis; R45.851 Suicidal ideations; Z59.0 Homelessness; F12.10 Cannabis abuse, uncomplicated; F15.10 Other stimulant abuse, uncomplicated; F11.10 Opioid abuse, uncomplicated; F17.210 Nicotine dependence, cigarettes, uncomplicated; Z91.018 Allergy to other foods
CPT/HCPCS: 36415; 80053; 85025; 99284; G0480

== ENCOUNTER 2017-05-17 13:14 | Emergency (ER) | payer MEDICARE, OTHER ==
[~2017-05-17] VITALS: Ht 152.4 cm; Wt 84.1 kg
[2017-05-17] MEDS ORDERED: SODIUM CHLORIDE 0.9% 1,000 ML IV ONE (14:30)
[2017-05-17] MEDS ORDERED: DiphenhydrAMINE HCL 50 MG/ML VIAL IVP ONE (14:30)
[2017-05-17] MEDS ORDERED: MORPHINE SULFATE 2 MG/ML SYRINGE IVP ONE (14:30)
[2017-05-17] MEDS ORDERED: ONDANSETRON HCL 4 MG/2 ML VIAL IVP ONE (14:30)
[2017-05-17 14:51] LABS: BASOPHILS # (AUTO) 0.06 K/uL (0.00-0.20); BASOPHILS % (AUTO) 0.4 % (0.0-2.0); EOSINOPHILS # (AUTO) 0.21 K/uL (0.00-0.70); EOSINOPHILS % (AUTO) 1.38 % (1.0-6.0); HEMOGLOBIN 12.3 g/dL (12.0-16.0); LYMPHOCYTES # (AUTO) 1.9 K/uL (1.0-4.8); MEAN CORPUSCULAR HEMOGLOBIN 30.1 pg (26.0-34.0); MEAN CORPUSCULAR HGB CONC 33.3 G/dL (31.0-37.0); MEAN CORPUSCULAR VOLUME 90 fL (80-100); MONOCYTES % (AUTO) 6.6 % (2.0-9.0); NEUTROPHILS # (AUTO) 12.3 K/uL (1.8-7.7); NEUTROPHILS % (AUTO) 79.7 % (40.0-70.0); PLATELET COUNT (AUTO) 196 K/uL (150-450); RED BLOOD CELL COUNT(AUTO) 4.09 MIL/uL (4.00-5.20); RED CELL DISTRIBUTION WIDTH 15.6 % (11.5-14.5)
[2017-05-17 15:04] LABS: ANION GAP 10 mmol/L (8-16); CALCIUM, TOTAL 8.9 mg/dL (8.8-10.5); CARBON DIOXIDE 24 mmol/L (22-29); CHLORIDE 103 mmol/L (98-107); CREATININE 0.77 mg/dL (0.60-1.30); GLOMERULAR FILTR. RATE CALC > 60 mL/min (>60); GLUCOSE,RANDOM 98 mg/dL (70-110); POTASSIUM 3.7 mmol/L (3.5-5.1); SODIUM SERUM 137 mmol/L (136-145); UREA NITROGEN, BLOOD 14 mg/dL (7-18)
[2017-05-17 15:11] LABS: ALANINE AMINOTRANSFERASE 32 U/L (12-78); ALBUMIN 3.1 g/dL (3.4-5.0); ALKALINE PHOSPHATASE 111 U/L (46-116); ASPARTATE AMINOTRANSFERASE 26 U/L (15-37); BILIRUBIN,TOTAL 0.4 mg/dL (0.1-1.0)
[2017-05-17 18:08] VITALS: BP 102/60
== END 2017-05-17 18:42 | disposition home or self-care (01) ==
LOC: EMS 13:17
DX: M79.671 Pain in right foot (principal); M79.672 Pain in left foot; F31.9 Bipolar disorder, unspecified; F20.9 Schizophrenia, unspecified; R07.9 Chest pain, unspecified; J45.909 Unspecified asthma, uncomplicated; K21.9 Gastro-esophageal reflux disease without esophagitis; I10 Essential (primary) hypertension; M19.90 Unspecified osteoarthritis, unspecified site; F17.210 Nicotine dependence, cigarettes, uncomplicated; F14.10 Cocaine abuse, uncomplicated; F12.10 Cannabis abuse, uncomplicated; F15.10 Other stimulant abuse, uncomplicated; Z98.51 Tubal ligation status; Z90.49 Acquired absence of other specified parts of digestive tract; Z59.0 Homelessness
CPT/HCPCS: 36415; 80053; 85025; 93005; 99285; G0480

== ENCOUNTER 2017-05-17 21:47 | Emergency (ER) | payer MEDICARE, OTHER ==
[~2017-05-17] VITALS: Ht 165.1 cm; Wt 72.0 kg
[2017-05-17 23:06] LABS: AMPHET/METH SCREEN,URINE POSITIVE (NEGATIVE); BARBITURATE SCREEN, URINE NEGATIVE (NEGATIVE); BENZODIAZEPINES SCREEN,URINE NEGATIVE (NEGATIVE); CANNABINOID SCREEN,URINE POSITIVE (NEGATIVE); COCAINE SCREEN,URINE NEGATIVE (NEGATIVE); METHADONE SCREEN, URINE NEGATIVE (NEGATIVE); OPIATE SCREEN,URINE NEGATIVE (NEGATIVE); PHENCYCLIDINE SCREEN,URINE NEGATIVE (NEGATIVE)
[2017-05-18] VITALS: BP 128/88
== END 2017-05-18 00:24 | disposition home or self-care (01) ==
LOC: EMS 21:52
DX: F20.9 Schizophrenia, unspecified (principal); M79.671 Pain in right foot; M79.672 Pain in left foot; M19.90 Unspecified osteoarthritis, unspecified site; J45.909 Unspecified asthma, uncomplicated; K21.9 Gastro-esophageal reflux disease without esophagitis; I10 Essential (primary) hypertension; F17.210 Nicotine dependence, cigarettes, uncomplicated; F15.10 Other stimulant abuse, uncomplicated; F12.10 Cannabis abuse, uncomplicated; F14.10 Cocaine abuse, uncomplicated; Z90.49 Acquired absence of other specified parts of digestive tract; Z98.51 Tubal ligation status; Z59.0 Homelessness
CPT/HCPCS: 99284

== ENCOUNTER 2017-05-31 13:10 | Inpatient (IN) | payer MEDICARE, OTHER ==
[~2017-05-31] VITALS: Ht 165.1 cm; Wt 70.4 kg
[2017-05-31] MEDS ORDERED: DiphenhydrAMINE HCL 50 MG/ML VIAL ONE (13:13)
[2017-05-31] MEDS ORDERED: LORazepam 2 MG/ML VIAL ONE (13:13)
[2017-05-31] MEDS ORDERED: HALOPERIDOL LACTATE 5 MG/ML VIAL ONE (13:14)
[2017-05-31] MEDS ORDERED: LORazepam 2 MG/ML VIAL IM ONE (13:30)
[2017-05-31] MEDS ORDERED: HALOPERIDOL LACTATE 5 MG/ML VIAL IM ONE (13:30)
[2017-05-31] MEDS ORDERED: DiphenhydrAMINE HCL 50 MG/ML VIAL IM ONE (13:30)
[2017-05-31 13:38] LABS: BASOPHILS % (AUTO) 0.4 % (0.0-2.0); EOSINOPHILS % (AUTO) 0.6 % (1.0-6.0); HEMATOCRIT 36.3 % (36-46); HEMOGLOBIN 12.4 g/dL (12.0-16.0); LYMPHOCYTES # (AUTO) 2.3 K/uL (1.0-4.8); LYMPHOCYTES % (AUTO) 20.6 % (22.0-44.0); MEAN CORPUSCULAR HEMOGLOBIN 30.5 pg (26.0-34.0); MEAN CORPUSCULAR VOLUME 89 fL (80-100); MONOCYTES # (AUTO) 0.4 K/uL (0.1-1.0); MONOCYTES % (AUTO) 3.7 % (2.0-9.0); NEUTROPHILS # (AUTO) 8.3 K/uL (1.8-7.7); NEUTROPHILS % (AUTO) 74.7 % (40.0-70.0); PLATELET COUNT (AUTO) 230 K/uL (150-450); RED BLOOD CELL COUNT(AUTO) 4.06 MIL/uL (4.00-5.20); RED CELL DISTRIBUTION WIDTH 15.1 % (11.5-14.5); WHITE BLOOD COUNT (AUTO) 11.1 K/uL (4.5-11.0)
[2017-05-31 13:48] LABS: ANION GAP 14 mmol/L (8-16); CALCIUM, TOTAL 8.8 mg/dL (8.8-10.5); CARBON DIOXIDE 23 mmol/L (22-29); CHLORIDE 106 mmol/L (98-107); CREATININE 0.83 mg/dL (0.60-1.30); GLOMERULAR FILTR. RATE CALC > 60 mL/min (>60); POTASSIUM 3.4 mmol/L (3.5-5.1); SODIUM SERUM 143 mmol/L (136-145); UREA NITROGEN, BLOOD 18 mg/dL (7-18)
[2017-05-31 13:54] LABS: ALANINE AMINOTRANSFERASE 16 U/L (12-78); ALBUMIN 3.5 g/dL (3.4-5.0); ASPARTATE AMINOTRANSFERASE 14 U/L (15-37); BILIRUBIN,TOTAL 0.4 mg/dL (0.1-1.0); TOTAL PROTEIN, SERUM 7.4 g/dL (6.4-8.2)
[2017-05-31] MEDS ORDERED: TUBERCULIN, PURIFIED PROTEIN DERIVATIVE 5 TU/0.1 ML SYG ID ONE (15:45)
[2017-05-31] MEDS ORDERED: LOPERAMIDE HCL 2 MG CAPSULE PO PRN (15:45)
[2017-05-31] MEDS ORDERED: GuaiFENesin/D-METHORPHAN [SUGAR-FREE] 200-20MG/10 ML SYRUP UDCUP PO PRN (15:45)
[2017-05-31] MEDS ORDERED: OLANZapine 5 MG RAPDIS TABLET PO PRN (15:45)
[2017-05-31] MEDS ORDERED: MAGNESIUM HYDROXIDE SUSPENSION 30 ML UDCUP PO PRN (15:45)
[2017-05-31] MEDS ORDERED: ZOLPIDEM TARTRATE 10 MG TABLET PO PRN (15:45)
[2017-05-31] MEDS ORDERED: MAG HYDROX/AL HYDROX/SIMETH ES 30 ML SUSPENSION UDCUP PO PRN (15:45)
[2017-05-31] MEDS ORDERED: ACETAMINOPHEN 325 MG TABLET PO PRN (15:45)
[2017-05-31] MEDS ORDERED: PROMETHAZINE HCL 25 MG TABLET PO PRN (15:45)
[2017-05-31] MEDS: THIAMINE HCL 100 MG TABLET PO SCH (17:20)
[2017-05-31] MEDS ORDERED: POTASSIUM CHLORIDE 20 MEQ ER TABLET PO ONE (19:00)
[2017-05-31] MEDS: OLANZapine 5 MG RAPDIS TABLET PO SCH (21:00)
[2017-05-31] MEDS: DIVALPROEX SODIUM 500 MG ER TABLET PO SCH (21:00)
[2017-06-01] MEDS: OMEPRAZOLE 20 MG CAPSULE PO SCH ×2 (09:00→10:09)
[2017-06-01] MEDS: FOLIC ACID 1 MG TABLET PO SCH ×2 (09:00→10:09)
[2017-06-01] MEDS: NALTREXONE HCL 50 MG TABLET PO SCH ×2 (09:00→10:08)
[2017-06-01] MEDS: MULTIVITAMINS WITH MINERALS, THERAPEUTIC TABLET PO SCH ×2 (09:00→10:08)
[2017-06-01] MEDS: LevETIRAcetam 250 MG TABLET PO SCH ×3 (09:00→16:43)
[2017-06-01] MEDS: THIAMINE HCL 100 MG TABLET PO SCH ×3 (09:00→16:44)
[2017-06-01] MEDS: OLANZapine 5 MG RAPDIS TABLET PO SCH (21:00)
[2017-06-01] MEDS: DIVALPROEX SODIUM 500 MG ER TABLET PO SCH (21:00)
[2017-06-02] MEDS ORDERED: PNEUMOCOCCAL VACCINE POLYVALENT 0.5 ML VIAL [PPSV23] IM ONE (06:00)
[2017-06-02] MEDS: HydrOXYzine PAMOATE 50 MG CAPSULE PO PRN (08:52)
[2017-06-02] MEDS: NALTREXONE HCL 50 MG TABLET PO SCH (09:10)
[2017-06-02] MEDS: LevETIRAcetam 250 MG TABLET PO SCH ×2 (09:10→17:00)
[2017-06-02] MEDS: FOLIC ACID 1 MG TABLET PO SCH (09:12)
[2017-06-02] MEDS: OMEPRAZOLE 20 MG CAPSULE PO SCH (09:12)
[2017-06-02] MEDS: MULTIVITAMINS WITH MINERALS, THERAPEUTIC TABLET PO SCH (09:12)
[2017-06-02] MEDS: THIAMINE HCL 100 MG TABLET PO SCH ×2 (09:15→17:00)
[2017-06-02] MEDS: LORazepam 2 MG TABLET PO PRN (09:17)
[2017-06-02] MEDS ORDERED: PALIPERIDONE PALMITATE 234 MG/1.5 ML SYRINGE IM ONE (12:00)
[2017-06-02] MEDS ORDERED: PALIPERIDONE 6 MG ER TABLET PO SCH (21:00)
[2017-06-03] MEDS: HydrOXYzine PAMOATE 50 MG CAPSULE PO PRN ×2 (08:23→17:46)
[2017-06-03] MEDS: NALTREXONE HCL 50 MG TABLET PO SCH (08:24)
[2017-06-03] MEDS: LevETIRAcetam 250 MG TABLET PO SCH ×2 (08:24→16:06)
[2017-06-03] MEDS: LORazepam 2 MG TABLET PO PRN ×2 (08:24→17:45)
[2017-06-03] MEDS: THIAMINE HCL 100 MG TABLET PO SCH ×2 (08:24→16:06)
[2017-06-03] MEDS: FOLIC ACID 1 MG TABLET PO SCH (08:24)
[2017-06-03] MEDS: OMEPRAZOLE 20 MG CAPSULE PO SCH (08:25)
[2017-06-03] MEDS: MULTIVITAMINS WITH MINERALS, THERAPEUTIC TABLET PO SCH (08:26)
[2017-06-04] MEDS: LevETIRAcetam 250 MG TABLET PO SCH ×2 (08:02→17:03)
[2017-06-04] MEDS: FOLIC ACID 1 MG TABLET PO SCH (08:02)
[2017-06-04] MEDS: THIAMINE HCL 100 MG TABLET PO SCH ×2 (08:03→17:03)
[2017-06-04] MEDS: NALTREXONE HCL 50 MG TABLET PO SCH (08:03)
[2017-06-04] MEDS: OMEPRAZOLE 20 MG CAPSULE PO SCH (08:03)
[2017-06-04] MEDS: MULTIVITAMINS WITH MINERALS, THERAPEUTIC TABLET PO SCH (08:03)
[2017-06-04] MEDS: LORazepam 2 MG TABLET PO PRN (10:51)
[2017-06-05] MEDS: MULTIVITAMINS WITH MINERALS, THERAPEUTIC TABLET PO SCH (08:06)
[2017-06-05] MEDS: THIAMINE HCL 100 MG TABLET PO SCH ×2 (08:06→16:59)
[2017-06-05] MEDS: NALTREXONE HCL 50 MG TABLET PO SCH (08:06)
[2017-06-05] MEDS: OMEPRAZOLE 20 MG CAPSULE PO SCH (08:06)
[2017-06-05] MEDS: FOLIC ACID 1 MG TABLET PO SCH (08:06)
[2017-06-05] MEDS: LevETIRAcetam 250 MG TABLET PO SCH ×2 (08:06→16:59)
[2017-06-05] MEDS: LORazepam 2 MG TABLET PO PRN ×2 (10:46→15:51)
[2017-06-05] MEDS: HydrOXYzine PAMOATE 50 MG CAPSULE PO PRN (10:46)
[2017-06-05 16:15] VITALS: BP 124/67
[2017-06-06] MEDS: LevETIRAcetam 250 MG TABLET PO SCH ×2 (08:26→16:17)
[2017-06-06] MEDS: MULTIVITAMINS WITH MINERALS, THERAPEUTIC TABLET PO SCH (08:27)
[2017-06-06] MEDS: THIAMINE HCL 100 MG TABLET PO SCH ×2 (08:27→16:16)
[2017-06-06] MEDS: OMEPRAZOLE 20 MG CAPSULE PO SCH (08:27)
[2017-06-06] MEDS: FOLIC ACID 1 MG TABLET PO SCH (08:27)
[2017-06-06] MEDS: NALTREXONE HCL 50 MG TABLET PO SCH (08:27)
[2017-06-06] MEDS ORDERED: PALIPERIDONE PALMITATE 156 MG/ML SYRINGE IM ONE (09:00)
[2017-06-06 16:29] VITALS: BP 105/61
[2017-06-07] MEDS: MULTIVITAMINS WITH MINERALS, THERAPEUTIC TABLET PO SCH (09:00)
[2017-06-07] MEDS: LevETIRAcetam 250 MG TABLET PO SCH ×2 (09:00→17:00)
[2017-06-07] MEDS: FOLIC ACID 1 MG TABLET PO SCH (09:00)
[2017-06-07] MEDS: OMEPRAZOLE 20 MG CAPSULE PO SCH (09:00)
[2017-06-07] MEDS: THIAMINE HCL 100 MG TABLET PO SCH ×2 (09:00→17:00)
[2017-06-07] MEDS: NALTREXONE HCL 50 MG TABLET PO SCH (09:00)
[2017-06-08] MEDS: FOLIC ACID 1 MG TABLET PO SCH (09:41)
[2017-06-08] MEDS: OMEPRAZOLE 20 MG CAPSULE PO SCH (09:42)
[2017-06-08] MEDS: LevETIRAcetam 250 MG TABLET PO SCH ×2 (09:42→16:34)
[2017-06-08] MEDS: NALTREXONE HCL 50 MG TABLET PO SCH (09:43)
[2017-06-08] MEDS: MULTIVITAMINS WITH MINERALS, THERAPEUTIC TABLET PO SCH (09:43)
[2017-06-08] MEDS: THIAMINE HCL 100 MG TABLET PO SCH ×2 (09:43→16:34)
[2017-06-08] MEDS: LORazepam 2 MG TABLET PO PRN (16:34)
[2017-06-08] MEDS: PALIPERIDONE 3 MG ER TABLET PO PRN (17:57)
[2017-06-09] MEDS: THIAMINE HCL 100 MG TABLET PO SCH ×2 (09:00→16:02)
[2017-06-09] MEDS: LevETIRAcetam 250 MG TABLET PO SCH ×2 (09:00→16:02)
[2017-06-09] MEDS: OMEPRAZOLE 20 MG CAPSULE PO SCH (09:00)
[2017-06-09] MEDS: MULTIVITAMINS WITH MINERALS, THERAPEUTIC TABLET PO SCH (09:00)
[2017-06-09] MEDS: NALTREXONE HCL 50 MG TABLET PO SCH (09:00)
[2017-06-09] MEDS: FOLIC ACID 1 MG TABLET PO SCH (09:00)
[2017-06-09 16:17] VITALS: BP 114/71
[2017-06-09] MEDS: LORazepam 2 MG TABLET PO PRN (16:24)
[2017-06-09] MEDS: PALIPERIDONE 3 MG ER TABLET PO PRN (17:23)
[2017-06-10 08:16] VITALS: BP 112/57
[2017-06-10] MEDS: MULTIVITAMINS WITH MINERALS, THERAPEUTIC TABLET PO SCH (09:00)
[2017-06-10] MEDS: FOLIC ACID 1 MG TABLET PO SCH (09:00)
[2017-06-10] MEDS: OMEPRAZOLE 20 MG CAPSULE PO SCH (09:01)
[2017-06-10] MEDS: LevETIRAcetam 250 MG TABLET PO SCH ×2 (09:01→16:01)
[2017-06-10] MEDS: THIAMINE HCL 100 MG TABLET PO SCH (09:01)
[2017-06-10] MEDS: NALTREXONE HCL 50 MG TABLET PO SCH (09:01)
[2017-06-10] MEDS ORDERED: PALI234D IM (13:09)
[2017-06-10] MEDS ORDERED: LEVE250T55 PO (13:09)
[2017-06-10] MEDS ORDERED: NALT50TA PO (13:09)
[2017-06-10] MEDS: LORazepam 2 MG TABLET PO PRN (16:02)
[2017-06-10 16:05] VITALS: BP 118/68
[2017-06-11 06:51] VITALS: BP 108/72
[2017-06-11] MEDS ORDERED: OMEP20 PO (07:57)
[2017-06-11] MEDS ORDERED: MULT1TAB70 PO (07:57)
[2017-06-11] MEDS: NALTREXONE HCL 50 MG TABLET PO SCH (08:12)
[2017-06-11] MEDS: OMEPRAZOLE 20 MG CAPSULE PO SCH (08:12)
[2017-06-11] MEDS: LevETIRAcetam 250 MG TABLET PO SCH (08:12)
[2017-06-11] MEDS: MULTIVITAMINS WITH MINERALS, THERAPEUTIC TABLET PO SCH (08:12)
[2017-06-11 08:22] VITALS: BP 100/52
[2017-06-11 08:54] LABS: BASOPHILS % (AUTO) 0.5 % (0.0-2.0); EOSINOPHILS % (AUTO) 2.7 % (1.0-6.0); HEMOGLOBIN 13.3 g/dL (12.0-16.0); LYMPHOCYTES # (AUTO) 1.7 K/uL (1.0-4.8); LYMPHOCYTES % (AUTO) 31.7 % (22.0-44.0); MEAN CORPUSCULAR HEMOGLOBIN 30.1 pg (26.0-34.0); MEAN CORPUSCULAR HGB CONC 33.3 G/dL (31.0-37.0); MEAN CORPUSCULAR VOLUME 90 fL (80-100); MONOCYTES # (AUTO) 0.3 K/uL (0.1-1.0); MONOCYTES % (AUTO) 6.1 % (2.0-9.0); NEUTROPHILS # (AUTO) 3.2 K/uL (1.8-7.7); PLATELET COUNT (AUTO) 191 K/uL (150-450); RED BLOOD CELL COUNT(AUTO) 4.43 MIL/uL (4.00-5.20); WHITE BLOOD COUNT (AUTO) 5.5 K/uL (4.5-11.0)
[2017-06-11 09:32] LABS: ALANINE AMINOTRANSFERASE 63 U/L (12-78); ALBUMIN 3.2 g/dL (3.4-5.0); ANION GAP 8 mmol/L (8-16); ASPARTATE AMINOTRANSFERASE 33 U/L (15-37); BILIRUBIN,TOTAL 0.1 mg/dL (0.1-1.0); CALCIUM, TOTAL 8.6 mg/dL (8.8-10.5); CARBON DIOXIDE 26 mmol/L (22-29); CHLORIDE 106 mmol/L (98-107); CREATINE KINASE, TOTAL 24 U/L (26-192); CREATININE 0.84 mg/dL (0.60-1.30); GLOMERULAR FILTR. RATE CALC > 60 mL/min (>60); POTASSIUM 4.5 mmol/L (3.5-5.1); SODIUM SERUM 140 mmol/L (136-145); TOTAL PROTEIN, SERUM 6.6 g/dL (6.4-8.2); UREA NITROGEN, BLOOD 22 mg/dL (7-18)
== END 2017-06-11 11:45 | disposition home or self-care (01) | DRG 885 ==
LOC: EMS 13:13 → 3EC 17:15 → B3A 06-05 18:48
PROVIDERS: ADMIT Psychiatry & Neurology Psychiatry; ATTEND Psychiatry & Neurology Psychiatry
DX: F25.9 Schizoaffective disorder, unspecified (principal); Z78.1 Physical restraint status; I10 Essential (primary) hypertension; F22 Delusional disorders; E87.6 Hypokalemia; F41.9 Anxiety disorder, unspecified; G40.909 Epilepsy, unspecified, not intractable, without status epilepticus; J44.9 Chronic obstructive pulmonary disease, unspecified; K21.9 Gastro-esophageal reflux disease without esophagitis; M19.90 Unspecified osteoarthritis, unspecified site; Z59.0 Homelessness; Z81.8 Family history of other mental and behavioral disorders; Z87.891 Personal history of nicotine dependence; Z91.19 Patient's noncompliance with other medical treatment and regimen; Z28.21 Immunization not carried out because of patient refusal; Z88.8 Allergy status to other drugs, medicaments and biological substances
CPT/HCPCS: 83735; 96372; 99291; G0480; J1200; J1630; J2060

== ENCOUNTER 2017-06-17 02:15 | Inpatient (IN) | payer MEDICARE, OTHER ==
[~2017-06-17] VITALS: Ht 165.1 cm; Wt 70.4 kg
[~2017-06-17 02:15] MED LIST changes: -BENZ1TAB10 PO; +MULT1TAB70 PO; +NALT50TA PO; +PALI234D IM; -RISP2 PO
[2017-06-17 03:05] LABS: BASOPHILS # (AUTO) 0.06 K/uL (0.00-0.20); BASOPHILS % (AUTO) 0.7 % (0.0-2.0); EOSINOPHILS # (AUTO) 0.26 K/uL (0.00-0.70); EOSINOPHILS % (AUTO) 3.29 % (1.0-6.0); HEMATOCRIT 34.2 % (36-46); HEMOGLOBIN 11.6 g/dL (12.0-16.0); LYMPHOCYTES # (AUTO) 2.7 K/uL (1.0-4.8); LYMPHOCYTES % (AUTO) 34.8 % (22.0-44.0); MEAN CORPUSCULAR HEMOGLOBIN 30.5 pg (26.0-34.0); MEAN CORPUSCULAR VOLUME 90 fL (80-100); MONOCYTES # (AUTO) 0.5 K/uL (0.1-1.0); MONOCYTES % (AUTO) 6.7 % (2.0-9.0); NEUTROPHILS # (AUTO) 4.3 K/uL (1.8-7.7); NEUTROPHILS % (AUTO) 54.6 % (40.0-70.0); PLATELET COUNT (AUTO) 191 K/uL (150-450); RED BLOOD CELL COUNT(AUTO) 3.82 MIL/uL (4.00-5.20); RED CELL DISTRIBUTION WIDTH 15.2 % (11.5-14.5); WHITE BLOOD COUNT (AUTO) 7.9 K/uL (4.5-11.0)
[2017-06-17 03:09] LABS: ANION GAP 7 mmol/L (8-16); CALCIUM, TOTAL 8.5 mg/dL (8.8-10.5); CARBON DIOXIDE 31 mmol/L (22-29); CHLORIDE 105 mmol/L (98-107); CREATININE 0.92 mg/dL (0.60-1.30); GLOMERULAR FILTR. RATE CALC > 60 mL/min (>60); POTASSIUM 3.7 mmol/L (3.5-5.1); SODIUM SERUM 143 mmol/L (136-145); UREA NITROGEN, BLOOD 11 mg/dL (7-18)
[2017-06-17 03:15] LABS: ALANINE AMINOTRANSFERASE 24 U/L (12-78); ASPARTATE AMINOTRANSFERASE 12 U/L (15-37); BILIRUBIN,TOTAL 0.3 mg/dL (0.1-1.0); TOTAL PROTEIN, SERUM 6.4 g/dL (6.4-8.2)
[2017-06-17] MEDS ORDERED: HALOPERIDOL 5 MG TABLET PO PRN (03:45)
[2017-06-17] MEDS ORDERED: LORazepam 2 MG TABLET PO PRN ×2 (03:45)
[2017-06-17] MEDS ORDERED: QUEtiapine FUMARATE 100 MG TABLET PO PRN (03:45)
[2017-06-17] MEDS ORDERED: ZOLPIDEM TARTRATE 10 MG TABLET PO PRN ×2 (03:45)
[2017-06-17] MEDS ORDERED: IBUPROFEN 400 MG TABLET PO PRN (14:45)
[2017-06-17] MEDS ORDERED: ACETAMINOPHEN 325 MG TABLET PO PRN (14:45)
[2017-06-17] MEDS ORDERED: ALBUTEROL SULFATE HFA 90 MCG/PUFF 8 GM INHALER IH PRN (14:45)
[2017-06-17] MEDS: LevETIRAcetam 500 MG TABLET PO SCH (16:38)
[2017-06-17] MEDS: DIVALPROEX SODIUM 500 MG ER TABLET PO SCH (21:00)
[2017-06-17] MEDS: OLANZapine 5 MG RAPDIS TABLET PO SCH (21:00)
[2017-06-18] MEDS: LevETIRAcetam 500 MG TABLET PO SCH ×3 (09:00→16:49)
[2017-06-18 17:00] VITALS: BP 121/74
[2017-06-18] MEDS: DIVALPROEX SODIUM 500 MG ER TABLET PO SCH (20:31)
[2017-06-18] MEDS: OLANZapine 5 MG RAPDIS TABLET PO SCH (20:31)
[2017-06-19] MEDS: LevETIRAcetam 500 MG TABLET PO SCH ×2 (09:00→16:24)
[2017-06-19 18:08] VITALS: BP 100/58
[2017-06-19] MEDS: OLANZapine 5 MG RAPDIS TABLET PO SCH (21:23)
[2017-06-19] MEDS: DIVALPROEX SODIUM 500 MG ER TABLET PO SCH (21:23)
[2017-06-20] MEDS: LevETIRAcetam 500 MG TABLET PO SCH ×2 (08:44→16:20)
[2017-06-20] MEDS: OLANZapine 5 MG RAPDIS TABLET PO SCH (21:00)
[2017-06-20] MEDS ORDERED: DIVALPROEX SODIUM 500 MG ER TABLET PO SCH (21:00)
[2017-06-20 21:35] VITALS: BP 104/58
[2017-06-21] MEDS: LevETIRAcetam 500 MG TABLET PO SCH ×2 (08:24→16:20)
[2017-06-21] MEDS ORDERED: ACETAMINOPHEN 325 MG TABLET PO PRN (12:00)
[2017-06-21] MEDS ORDERED: PROMETHAZINE HCL 25 MG TABLET PO PRN (12:00)
[2017-06-21] MEDS ORDERED: MAG HYDROX/AL HYDROX/SIMETH ES 30 ML SUSPENSION UDCUP PO PRN (12:00)
[2017-06-21] MEDS ORDERED: GuaiFENesin/D-METHORPHAN [SUGAR-FREE] 200-20MG/10 ML SYRUP UDCUP PO PRN (12:00)
[2017-06-21] MEDS ORDERED: LOPERAMIDE HCL 2 MG CAPSULE PO PRN (12:00)
[2017-06-21] MEDS ORDERED: HydrOXYzine PAMOATE 50 MG CAPSULE PO PRN (12:00)
[2017-06-21] MEDS: THIAMINE HCL 100 MG TABLET PO SCH (16:20)
[2017-06-21] MEDS: DIVALPROEX SODIUM 500 MG ER TABLET PO SCH (21:08)
[2017-06-21] MEDS: OLANZapine 10 MG RAPDIS TABLET PO SCH (21:08)
[2017-06-22] MEDS: NALTREXONE HCL 50 MG TABLET PO SCH (10:01)
[2017-06-22] MEDS: FOLIC ACID 1 MG TABLET PO SCH (10:01)
[2017-06-22] MEDS: MULTIVITAMINS WITH MINERALS, THERAPEUTIC TABLET PO SCH (10:01)
[2017-06-22] MEDS: THIAMINE HCL 100 MG TABLET PO SCH ×2 (10:01→17:01)
[2017-06-22] MEDS: LevETIRAcetam 500 MG TABLET PO SCH ×2 (10:01→17:01)
[2017-06-22 16:12] VITALS: BP 135/84
[2017-06-22] MEDS ORDERED: NALT50TA PO (16:52)
[2017-06-22] MEDS ORDERED: DIVA500T52 PO (16:52)
[2017-06-22] MEDS ORDERED: LEVE500T53 PO (16:52)
[2017-06-22] MEDS ORDERED: OLAN10TA22 PO (16:52)
[2017-06-22] MEDS: OLANZapine 10 MG RAPDIS TABLET PO SCH (21:00)
[2017-06-22] MEDS: DIVALPROEX SODIUM 500 MG ER TABLET PO SCH (21:00)
[2017-06-23] MEDS: LevETIRAcetam 500 MG TABLET PO SCH (08:22)
[2017-06-23] MEDS: THIAMINE HCL 100 MG TABLET PO SCH (08:22)
[2017-06-23] MEDS: NALTREXONE HCL 50 MG TABLET PO SCH (08:22)
[2017-06-23] MEDS: FOLIC ACID 1 MG TABLET PO SCH (08:22)
[2017-06-23] MEDS: MULTIVITAMINS WITH MINERALS, THERAPEUTIC TABLET PO SCH (08:22)
[2017-06-23] MEDS ORDERED: BISMUTH SUBSALICYLATE 262 MG CHEWABLE TABLET CHEW PRN (08:30)
== END 2017-06-23 14:19 | disposition home or self-care (01) | DRG 885 ==
LOC: EMS 02:17 → 3EX 04:29
PROVIDERS: ADMIT Psychiatry & Neurology Psychiatry; ATTEND Psychiatry & Neurology Psychiatry
DX: F25.0 Schizoaffective disorder, bipolar type (principal); E83.42 Hypomagnesemia; R45.851 Suicidal ideations; D64.9 Anemia, unspecified; F17.200 Nicotine dependence, unspecified, uncomplicated; F22 Delusional disorders; F39 Unspecified mood [affective] disorder; F41.9 Anxiety disorder, unspecified; G40.909 Epilepsy, unspecified, not intractable, without status epilepticus; I10 Essential (primary) hypertension; J44.9 Chronic obstructive pulmonary disease, unspecified; K21.9 Gastro-esophageal reflux disease without esophagitis; K29.70 Gastritis, unspecified, without bleeding; W22.01XA Walked into wall, initial encounter; Z59.0 Homelessness; Z91.19 Patient's noncompliance with other medical treatment and regimen; Z88.8 Allergy status to other drugs, medicaments and biological substances
CPT/HCPCS: 87081; 93005; 99285; G0480

== ENCOUNTER 2017-08-23 11:29 | Inpatient (IN) | payer MEDICARE, OTHER ==
[~2017-08-23] VITALS: Ht 162.6 cm; Wt 56.8 kg
[~2017-08-23 11:29] MED LIST changes: +DIVA500T52 PO; -LEVE250T55 PO; +LEVE500T53 PO; -MULT1TAB70 PO; +OLAN10TA22 PO; -OMEP20 PO; -PALI234D IM
[2017-08-23] MEDS ORDERED: HALOPERIDOL LACTATE 5 MG/ML VIAL IM ONE (11:45)
[2017-08-23] MEDS ORDERED: DiphenhydrAMINE HCL 50 MG/ML VIAL IM ONE (11:45)
[2017-08-23] MEDS ORDERED: LORazepam 2 MG/ML VIAL IM ONE (11:45)
[2017-08-23 11:52] LABS: BASOPHILS % (AUTO) 0.5 % (0.0-2.0); EOSINOPHILS % (AUTO) 1.2 % (1.0-6.0); HEMOGLOBIN 12.6 g/dL (12.0-16.0); LYMPHOCYTES # (AUTO) 2.7 K/uL (1.0-4.8); LYMPHOCYTES % (AUTO) 26.5 % (22.0-44.0); MEAN CORPUSCULAR HEMOGLOBIN 30.2 pg (26.0-34.0); MEAN CORPUSCULAR HGB CONC 33.9 G/dL (31.0-37.0); MEAN CORPUSCULAR VOLUME 89 fL (80-100); MONOCYTES # (AUTO) 0.7 K/uL (0.1-1.0); MONOCYTES % (AUTO) 7.1 % (2.0-9.0); NEUTROPHILS # (AUTO) 6.5 K/uL (1.8-7.7); NEUTROPHILS % (AUTO) 64.7 % (40.0-70.0); PLATELET COUNT (AUTO) 251 K/uL (150-450); RED BLOOD CELL COUNT(AUTO) 4.17 MIL/uL (4.00-5.20); RED CELL DISTRIBUTION WIDTH 14.8 % (11.5-14.5)
[2017-08-23 12:04] LABS: ANION GAP 10 mmol/L (8-16); CALCIUM, TOTAL 8.9 mg/dL (8.8-10.5); CARBON DIOXIDE 26 mmol/L (22-29); CHLORIDE 104 mmol/L (98-107); GLOMERULAR FILTR. RATE CALC > 60 mL/min (>60); POTASSIUM 3.8 mmol/L (3.5-5.1); SODIUM SERUM 140 mmol/L (136-145); UREA NITROGEN, BLOOD 20 mg/dL (7-18)
[2017-08-23 12:11] LABS: ALANINE AMINOTRANSFERASE 39 U/L (12-78); ALBUMIN 3.3 g/dL (3.4-5.0); ASPARTATE AMINOTRANSFERASE 17 U/L (15-37); BILIRUBIN,TOTAL 0.2 mg/dL (0.1-1.0); TOTAL PROTEIN, SERUM 7.3 g/dL (6.4-8.2)
[2017-08-23 12:26] LABS: VALPROIC ACID < 3 mcg/mL (50-100)
[2017-08-23] MEDS ORDERED: ZOLPIDEM TARTRATE 10 MG TABLET PO PRN (13:45)
[2017-08-23] MEDS ORDERED: MAG HYDROX/AL HYDROX/SIMETH ES 30 ML SUSPENSION UDCUP PO PRN (13:45)
[2017-08-23] MEDS ORDERED: PROMETHAZINE HCL 25 MG TABLET PO PRN (13:45)
[2017-08-23] MEDS ORDERED: PALIPERIDONE PALMITATE 234 MG/1.5 ML SYRINGE IM ONE (13:45)
[2017-08-23] MEDS ORDERED: LOPERAMIDE HCL 2 MG CAPSULE PO PRN (13:45)
[2017-08-23] MEDS ORDERED: ACETAMINOPHEN 325 MG TABLET PO PRN (13:45)
[2017-08-23] MEDS ORDERED: HydrOXYzine PAMOATE 50 MG CAPSULE PO PRN (13:45)
[2017-08-23] MEDS ORDERED: MAGNESIUM HYDROXIDE SUSPENSION 30 ML UDCUP PO PRN (13:45)
[2017-08-23] MEDS ORDERED: GuaiFENesin/D-METHORPHAN [SUGAR-FREE] 200-20MG/10 ML SYRUP UDCUP PO PRN (13:45)
[2017-08-23] MEDS: LevETIRAcetam 500 MG TABLET PO SCH (17:00)
[2017-08-23] MEDS: THIAMINE HCL 100 MG TABLET PO SCH (17:00)
[2017-08-23] MEDS ORDERED: INFLUENZA VIRUS VACCINE QVS 2017-18 (3YR+)/PF 60 MCG/0.5 ML SYRINGE IM ONE (17:45)
[2017-08-23] MEDS ORDERED: PNEUMOCOCCAL VACCINE POLYVALENT 0.5 ML VIAL [PPSV23] IM ONE (17:45)
[2017-08-23] MEDS: DIVALPROEX SODIUM 500 MG ER TABLET PO SCH (20:12)
[2017-08-24] MEDS: LevETIRAcetam 500 MG TABLET PO SCH ×2 (08:53→16:48)
[2017-08-24] MEDS: NALTREXONE HCL 50 MG TABLET PO SCH (08:53)
[2017-08-24] MEDS: MULTIVITAMINS WITH MINERALS, THERAPEUTIC TABLET PO SCH (08:53)
[2017-08-24] MEDS: FOLIC ACID 1 MG TABLET PO SCH (08:53)
[2017-08-24] MEDS: THIAMINE HCL 100 MG TABLET PO SCH ×2 (08:53→16:48)
[2017-08-24] MEDS: DIVALPROEX SODIUM 500 MG ER TABLET PO SCH (20:17)
[2017-08-25] MEDS: NALTREXONE HCL 50 MG TABLET PO SCH (08:59)
[2017-08-25] MEDS: LevETIRAcetam 500 MG TABLET PO SCH ×2 (08:59→17:00)
[2017-08-25] MEDS: FOLIC ACID 1 MG TABLET PO SCH (08:59)
[2017-08-25] MEDS: MULTIVITAMINS WITH MINERALS, THERAPEUTIC TABLET PO SCH (09:00)
[2017-08-25] MEDS: THIAMINE HCL 100 MG TABLET PO SCH ×2 (09:00→17:00)
[2017-08-25 10:34] VITALS: BP_SYST 16
[2017-08-25] MEDS: LORazepam 2 MG TABLET PO PRN (10:50)
[2017-08-25] MEDS: PALIPERIDONE 3 MG ER TABLET PO PRN (10:51)
[2017-08-25] MEDS: DIVALPROEX SODIUM 500 MG ER TABLET PO SCH (21:00)
[2017-08-26] MEDS: LORazepam 2 MG TABLET PO PRN (08:24)
[2017-08-26] MEDS: PALIPERIDONE 3 MG ER TABLET PO PRN (08:24)
[2017-08-26] MEDS: FOLIC ACID 1 MG TABLET PO SCH (08:24)
[2017-08-26] MEDS: LevETIRAcetam 500 MG TABLET PO SCH ×2 (08:25→16:10)
[2017-08-26] MEDS: NALTREXONE HCL 50 MG TABLET PO SCH (08:25)
[2017-08-26] MEDS: THIAMINE HCL 100 MG TABLET PO SCH ×2 (08:25→16:10)
[2017-08-26] MEDS: MULTIVITAMINS WITH MINERALS, THERAPEUTIC TABLET PO SCH (08:25)
[2017-08-26 08:38] VITALS: BP 117/77
[2017-08-26] MEDS ORDERED: PALIPERIDONE PALMITATE 234 MG/1.5 ML SYRINGE IM ONE (14:30)
[2017-08-26] MEDS ORDERED: NALT50TA PO (14:31)
[2017-08-26] MEDS ORDERED: PALI234D IM (14:31)
[2017-08-26] MEDS ORDERED: DIVA500T52 PO (14:31)
[2017-08-26] MEDS: DIVALPROEX SODIUM 500 MG ER TABLET PO SCH (20:55)
[2017-08-27] MEDS ORDERED: PALI234D IM (07:46)
[2017-08-27] MEDS: LevETIRAcetam 500 MG TABLET PO SCH (08:11)
[2017-08-27] MEDS: NALTREXONE HCL 50 MG TABLET PO SCH (08:11)
[2017-08-27] MEDS: FOLIC ACID 1 MG TABLET PO SCH (08:11)
[2017-08-27] MEDS: MULTIVITAMINS WITH MINERALS, THERAPEUTIC TABLET PO SCH (08:12)
[2017-08-27] MEDS: PALIPERIDONE 3 MG ER TABLET PO PRN (08:12)
[2017-08-27] MEDS: LORazepam 2 MG TABLET PO PRN (08:12)
[2017-08-27] MEDS: THIAMINE HCL 100 MG TABLET PO SCH (08:12)
[2017-08-30] MEDS ORDERED: PALIPERIDONE PALMITATE 156 MG/ML SYRINGE IM ONE (09:00)
[2017-09-23] MEDS ORDERED: PALIPERIDONE PALMITATE 234 MG/1.5 ML SYRINGE IM SCH (09:00)
== END 2017-08-27 11:41 | disposition home or self-care (01) | DRG 885 ==
LOC: EMS 11:31 → B3A 13:33
PROVIDERS: ADMIT Psychiatry & Neurology Psychiatry; ATTEND Psychiatry & Neurology Psychiatry
DX: F20.0 Paranoid schizophrenia (principal); G40.909 Epilepsy, unspecified, not intractable, without status epilepticus; F12.10 Cannabis abuse, uncomplicated; F17.210 Nicotine dependence, cigarettes, uncomplicated; I10 Essential (primary) hypertension; J44.9 Chronic obstructive pulmonary disease, unspecified; K21.9 Gastro-esophageal reflux disease without esophagitis; M19.90 Unspecified osteoarthritis, unspecified site; F19.10 Other psychoactive substance abuse, uncomplicated; R00.1 Bradycardia, unspecified; Z71.51 Drug abuse counseling and surveillance of drug abuser; Z59.0 Homelessness; Z90.5 Acquired absence of kidney; Z98.51 Tubal ligation status; Z91.14 Patient's other noncompliance with medication regimen; Z81.8 Family history of other mental and behavioral disorders
CPT/HCPCS: 90471; 96372; 99291; G0480; J1200; J1630; J2060

== ENCOUNTER 2017-11-01 11:04 | Inpatient (IN) | payer MEDICARE ==
[~2017-11-01] VITALS: Ht 160 cm; Wt 69.7 kg
[~2017-11-01 11:04] MED LIST changes: -OLAN10TA22 PO; +PALI234D IM
[2017-11-01] MEDS ORDERED: PALIPERIDONE 3 MG ER TABLET PO PRN (13:15)
[2017-11-01] MEDS ORDERED: LORazepam 2 MG TABLET PO PRN (13:15)
[2017-11-01] MEDS ORDERED: MAGNESIUM HYDROXIDE SUSPENSION 30 ML UDCUP PO PRN (13:15)
[2017-11-01] MEDS ORDERED: PROMETHAZINE HCL 25 MG TABLET PO PRN (13:15)
[2017-11-01] MEDS ORDERED: GuaiFENesin/D-METHORPHAN [SUGAR-FREE] 200-20MG/10 ML SYRUP UDCUP PO PRN (13:15)
[2017-11-01] MEDS ORDERED: LOPERAMIDE HCL 2 MG CAPSULE PO PRN (13:15)
[2017-11-01] MEDS ORDERED: HydrOXYzine PAMOATE 50 MG CAPSULE PO PRN (13:15)
[2017-11-01] MEDS ORDERED: PALIPERIDONE PALMITATE 234 MG/1.5 ML SYRINGE IM ONE (13:15)
[2017-11-01] MEDS ORDERED: ACETAMINOPHEN 325 MG TABLET PO PRN (13:15)
[2017-11-01] MEDS ORDERED: MAG HYDROX/AL HYDROX/SIMETH ES 30 ML SUSPENSION UDCUP PO PRN (13:15)
[2017-11-01] MEDS ORDERED: LORazepam 2 MG/ML VIAL IM ONE (15:45)
[2017-11-01] MEDS ORDERED: HALOPERIDOL LACTATE 5 MG/ML VIAL IM ONE (15:45)
[2017-11-01] MEDS ORDERED: DiphenhydrAMINE HCL 50 MG/ML VIAL IM ONE (15:45)
[2017-11-01 18:51] LABS: BASOPHILS % (AUTO) 0.9 % (0.0-2.0); EOSINOPHILS % (AUTO) 3.2 % (1.0-6.0); HEMATOCRIT 39.2 % (36-46); HEMOGLOBIN 13.2 g/dL (12.0-16.0); LYMPHOCYTES # (AUTO) 2.7 K/uL (1.0-4.8); LYMPHOCYTES % (AUTO) 37.5 % (22.0-44.0); MEAN CORPUSCULAR HEMOGLOBIN 29.4 pg (26.0-34.0); MEAN CORPUSCULAR HGB CONC 33.8 G/dL (31.0-37.0); MEAN CORPUSCULAR VOLUME 87 fL (80-100); MONOCYTES # (AUTO) 0.5 K/uL (0.1-1.0); MONOCYTES % (AUTO) 6.3 % (2.0-9.0); NEUTROPHILS # (AUTO) 3.7 K/uL (1.8-7.7); NEUTROPHILS % (AUTO) 52.1 % (40.0-70.0); PLATELET COUNT (AUTO) 245 K/uL (150-450); RED CELL DISTRIBUTION WIDTH 14.9 % (11.5-14.5)
[2017-11-01 19:01] LABS: ANION GAP 5 mmol/L (8-16); CALCIUM, TOTAL 8.9 mg/dL (8.8-10.5); CARBON DIOXIDE 29 mmol/L (22-29); CHLORIDE 104 mmol/L (98-107); CREATININE 0.74 mg/dL (0.60-1.30); GLOMERULAR FILTR. RATE CALC > 60 mL/min (>60); GLUCOSE,RANDOM 84 mg/dL (70-110); POTASSIUM 4.3 mmol/L (3.5-5.1); SODIUM SERUM 138 mmol/L (136-145); UREA NITROGEN, BLOOD 17 mg/dL (7-18)
[2017-11-01 19:05] LABS: ALANINE AMINOTRANSFERASE 28 U/L (12-78); ALBUMIN 3.3 g/dL (3.4-5.0); ALKALINE PHOSPHATASE 118 U/L (46-116); ASPARTATE AMINOTRANSFERASE 24 U/L (15-37); BILIRUBIN,TOTAL 0.2 mg/dL (0.1-1.0); HCG,QUANTITATIVE < 1 mIU/mL (0-6); TOTAL PROTEIN, SERUM 6.9 g/dL (6.4-8.2)
[2017-11-01 19:58] VITALS: BP 103/65
[2017-11-01] MEDS ORDERED: ALBUTEROL SULFATE HFA 90 MCG/PUFF 8 GM INHALER IH PRN (20:00)
[2017-11-01] MEDS ORDERED: INFLUENZA VIRUS VACCINE QVS 2017-18 (3YR+)/PF 60 MCG/0.5 ML SYRINGE IM ONE (20:00)
[2017-11-01] MEDS: THIAMINE HCL 100 MG TABLET PO SCH (21:00)
[2017-11-01] MEDS: PALIPERIDONE 3 MG ER TABLET PO SCH (21:00)
[2017-11-01] MEDS: LevETIRAcetam 500 MG TABLET PO SCH (21:00)
[2017-11-02] MEDS: MULTIVITAMINS WITH MINERALS, THERAPEUTIC TABLET PO SCH (09:00)
[2017-11-02] MEDS: NALTREXONE HCL 50 MG TABLET PO SCH (09:00)
[2017-11-02] MEDS: FOLIC ACID 1 MG TABLET PO SCH (09:00)
[2017-11-02] MEDS: LevETIRAcetam 500 MG TABLET PO SCH (09:00)
[2017-11-02] MEDS: THIAMINE HCL 100 MG TABLET PO SCH (09:00)
[2017-11-02] MEDS ORDERED: PALIPERIDONE PALMITATE 234 MG/1.5 ML SYRINGE IM ONE (17:15)
[2017-11-02] MEDS: PALIPERIDONE 3 MG ER TABLET PO SCH (21:00)
[2017-11-03] MEDS: NALTREXONE HCL 50 MG TABLET PO SCH (09:44)
[2017-11-03] MEDS: THIAMINE HCL 100 MG TABLET PO SCH ×2 (09:44→16:26)
[2017-11-03] MEDS: LevETIRAcetam 500 MG TABLET PO SCH ×2 (09:44→16:26)
[2017-11-03] MEDS: FOLIC ACID 1 MG TABLET PO SCH (09:44)
[2017-11-03] MEDS: MULTIVITAMINS WITH MINERALS, THERAPEUTIC TABLET PO SCH (09:44)
[2017-11-03 16:15] VITALS: BP 131/79
[2017-11-03] MEDS: PALIPERIDONE 3 MG ER TABLET PO SCH (20:57)
[2017-11-04] MEDS: THIAMINE HCL 100 MG TABLET PO SCH ×2 (10:49→17:30)
[2017-11-04] MEDS: MULTIVITAMINS WITH MINERALS, THERAPEUTIC TABLET PO SCH (10:49)
[2017-11-04] MEDS: NALTREXONE HCL 50 MG TABLET PO SCH (10:49)
[2017-11-04] MEDS: FOLIC ACID 1 MG TABLET PO SCH (10:49)
[2017-11-04] MEDS: LevETIRAcetam 500 MG TABLET PO SCH ×2 (10:50→17:30)
[2017-11-04] MEDS ORDERED: NALT50TA PO (11:16)
[2017-11-04] MEDS ORDERED: LEVE500T53 PO (11:16)
[2017-11-04] MEDS ORDERED: PALI234D IM (11:16)
[2017-11-04 16:43] VITALS: BP 102/67
[2017-11-05] MEDS: FOLIC ACID 1 MG TABLET PO SCH (08:23)
[2017-11-05] MEDS: THIAMINE HCL 100 MG TABLET PO SCH (08:23)
[2017-11-05] MEDS: LevETIRAcetam 500 MG TABLET PO SCH (08:23)
[2017-11-05] MEDS: MULTIVITAMINS WITH MINERALS, THERAPEUTIC TABLET PO SCH (08:23)
[2017-11-05] MEDS: NALTREXONE HCL 50 MG TABLET PO SCH (08:24)
[2017-11-05] MEDS ORDERED: PALIPERIDONE PALMITATE 156 MG/ML SYRINGE IM ONE (09:00)
[2017-11-30] MEDS ORDERED: PALIPERIDONE PALMITATE 234 MG/1.5 ML SYRINGE IM SCH (09:00)
== END 2017-11-05 10:30 | disposition home or self-care (01) | DRG 885 ==
LOC: EEVIPCON 11:04 → EMS 11:08 → AHU 17:48 → 3EI 11-02 19:52
PROVIDERS: ADMIT Psychiatry & Neurology Psychiatry; ATTEND Psychiatry & Neurology Psychiatry
DX: F20.0 Paranoid schizophrenia (principal); G40.909 Epilepsy, unspecified, not intractable, without status epilepticus; F17.210 Nicotine dependence, cigarettes, uncomplicated; I10 Essential (primary) hypertension; J44.9 Chronic obstructive pulmonary disease, unspecified; K21.9 Gastro-esophageal reflux disease without esophagitis; M19.90 Unspecified osteoarthritis, unspecified site; R62.50 Unspecified lack of expected normal physiological development in childhood; Z59.0 Homelessness; Z90.5 Acquired absence of kidney; Z91.14 Patient's other noncompliance with medication regimen; Z91.19 Patient's noncompliance with other medical treatment and regimen; Z98.51 Tubal ligation status; Z71.6 Tobacco abuse counseling; Z71.51 Drug abuse counseling and surveillance of drug abuser; Z91.048 Other nonmedicinal substance allergy status; Z79.899 Other long term (current) drug therapy; Z90.710 Acquired absence of both cervix and uterus
CPT/HCPCS: 96372; 99285; G0480; J1200; J1630; J2060

== ENCOUNTER 2017-12-01 22:54 | Emergency (ER) | payer MEDICARE ==
[~2017-12-01] VITALS: Ht 157.5 cm; Wt 56.5 kg
[~2017-12-01 22:54] MED LIST changes: -DIVA500T52 PO
[2017-12-02 01:10] VITALS: BP 127/62
== END 2017-12-02 01:41 | disposition home or self-care (01) ==
LOC: EMS 22:55
DX: R05 Cough (principal); M79.604 Pain in right leg; M19.90 Unspecified osteoarthritis, unspecified site; J45.909 Unspecified asthma, uncomplicated; K21.9 Gastro-esophageal reflux disease without esophagitis; I10 Essential (primary) hypertension; F17.210 Nicotine dependence, cigarettes, uncomplicated; F12.90 Cannabis use, unspecified, uncomplicated; F19.90 Other psychoactive substance use, unspecified, uncomplicated; F11.90 Opioid use, unspecified, uncomplicated; Z59.0 Homelessness; Z91.018 Allergy to other foods
CPT/HCPCS: 99283

== ENCOUNTER 2022-11-18 20:34 | Emergency (ER) | payer MEDICAID, MEDICARE, OTHER ==
[~2022-11-18 20:34] MED LIST changes: -LEVE500T53 PO; -NALT50TA PO; +NALT50TA6 PO; -PALI234D IM; +PALI6TAB15 PO
[2022-11-18 23:18] VITALS: BP 125/71
== END 2022-11-18 23:38 | disposition left against medical advice (07) ==
LOC: EMS 20:38
DX: Z53.21 Procedure and treatment not carried out due to patient leaving prior to being seen by health care provider (principal)
CPT/HCPCS: 99281; Z7502